=== PATIENT | male | born 1965 | race Caucasian/White ===

== ENCOUNTER 2020-03-30 13:56 | Emergency (ER) | payer MEDICAID ==
[~2020-03-30] VITALS: Ht 185.4 cm; Wt 99.8 kg
[2020-03-30 14:01] VITALS: BP_SYST 152
[2020-03-30] MEDS ORDERED: PIPERACILLIN/TAZO 3.375 GM in NS 50 ML IV ONE (14:15)
[2020-03-30] MEDS ORDERED: VANCOMYCIN HCL 1,000 MG in NS 250 ML IV ONE (14:15)
[2020-03-30 14:40] LABS: BASOPHILS % (AUTO) 0.3 % (0.0-2.0); EOSINOPHILS # (AUTO) 0.2 K/uL (0.0-0.4); EOSINOPHILS % (AUTO) 1.8 % (0.0-4.0); HEMATOCRIT 38.4 % (36-54); HEMOGLOBIN 13.1 g/dL (14.0-18.0); LYMPHOCYTES # (AUTO) 1.2 K/uL (1.0-5.5); LYMPHOCYTES % (AUTO) 12.5 % (20.5-51.5); MEAN CORPUSCULAR HEMOGLOBIN 30 pg (27-31); MEAN CORPUSCULAR HGB CONC 34 % (32-36); MEAN CORPUSCULAR VOLUME 88 fL (79.0-98.0); MONOCYTES # (AUTO) 0.7 K/uL (0.0-1.0); MONOCYTES % (AUTO) 7.4 % (1.7-9.3); NEUTROPHILS # (AUTO) 7.5 K/uL (1.8-7.7); PLATELET COUNT (AUTO) 208 K/uL (130-430); RED BLOOD CELL COUNT(AUTO) 4.36 MIL/uL (4.2-6.2); RED CELL DISTRIBUTION WIDTH 13.8 % (9.0-15.0); WHITE BLOOD COUNT (AUTO) 9.6 K/uL (4.8-10.8)
[2020-03-30 14:46] LABS: CALCIUM 8.8 mg/dL (8.4-11.0); CREATININE 1.2 mg/dL (0.55-1.30); POTASSIUM 4.7 mmol/L (3.5-5.1)
[2020-03-30] MEDS ORDERED: VANCOMYCIN HCL 1000 MG/VIAL IV ONE (14:50)
[2020-03-30 14:51] LABS: ALBUMIN 3.5 g/dL (3.4-4.8); TOTAL BILIRUBIN 0.7 mg/dL (0.0-1.0)
[2020-03-30] MEDS ORDERED: INSULIN REGULAR, HUMAN 10 UNITS/0.1 ML INJ IVP ONE (15:00)
[2020-03-30] MEDS ORDERED: PIPERACILLIN/TAZOBACTAM 3.375 GM/VIAL (ZOSYN) IV ONE (15:09)
[2020-03-30 17:03] VITALS: BP_SYST 147
== END 2020-03-30 17:00 | disposition home or self-care (01) ==
LOC: SED 13:56
DX: S91.332A Puncture wound without foreign body, left foot, initial encounter (principal); I10 Essential (primary) hypertension; E11.9 Type 2 diabetes mellitus without complications; X58.XXXA Exposure to other specified factors, initial encounter; Y93.89 Activity, other specified; Y92.89 Other specified places as the place of occurrence of the external cause; Y99.8 Other external cause status
CPT/HCPCS: 36415; 80053; 85025; 87040; 96365; 96367; 96375; 99284; J1815; J2543; J3370

== ENCOUNTER 2020-04-03 12:42 | Emergency (ER) | payer MEDICAID ==
[~2020-04-03] VITALS: Ht 185.4 cm; Wt 99.8 kg
[2020-04-03 13:20] VITALS: BP_SYST 105
[2020-04-03] MEDS ORDERED: NS 500 ML IV ONE (14:00)
[2020-04-03] MEDS ORDERED: ONDANSETRON HCL 4 MG/2 ML VIAL IVP ONE (14:00)
[2020-04-03] MEDS ORDERED: MORPHINE 2 MG/ML INJ. SYRINGE IVP ONE ×2 (14:00→18:15)
[2020-04-03] MEDS ORDERED: VANCOMYCIN HCL 1,000 MG in NS 250 ML IV ONE (14:00)
[2020-04-03] MEDS ORDERED: DIPH-TET-PERTUS Vaccine 0.5 ML VIAL (ADACEL) I.M. ONE (14:15)
[2020-04-03 14:42] LABS: BASOPHILS # (AUTO) 0.1 K/uL (0.0-0.2); BASOPHILS % (AUTO) 1.6 % (0.0-2.0); EOSINOPHILS # (AUTO) 0.2 K/uL (0.0-0.4); EOSINOPHILS % (AUTO) 3.1 % (0.0-4.0); HEMATOCRIT 38.2 % (36-54); HEMOGLOBIN 13.1 g/dL (14.0-18.0); LYMPHOCYTES # (AUTO) 0.5 K/uL (1.0-5.5); LYMPHOCYTES % (AUTO) 7.2 % (20.5-51.5); MEAN CORPUSCULAR HEMOGLOBIN 30 pg (27-31); MEAN CORPUSCULAR HGB CONC 34 % (32-36); MEAN CORPUSCULAR VOLUME 86 fL (79.0-98.0); MONOCYTES # (AUTO) 0.4 K/uL (0.0-1.0); MONOCYTES % (AUTO) 6.2 % (1.7-9.3); NEUTROPHILS # (AUTO) 5.2 K/uL (1.8-7.7); NEUTROPHILS % (AUTO) 81.9 % (40.0-70.0); PLATELET COUNT (AUTO) 248 K/uL (130-430); RED BLOOD CELL COUNT(AUTO) 4.44 MIL/uL (4.2-6.2); RED CELL DISTRIBUTION WIDTH 13.6 % (9.0-15.0); WHITE BLOOD COUNT (AUTO) 6.3 K/uL (4.8-10.8)
[2020-04-03] MEDS ORDERED: VANCOMYCIN HCL 1000 MG/VIAL IV ONE (14:52)
[2020-04-03 14:54] LABS: CALCIUM 8.7 mg/dL (8.4-11.0); CREATININE 1.47 mg/dL (0.55-1.30); POTASSIUM 4.9 mmol/L (3.5-5.1)
[2020-04-03 15:00] LABS: TOTAL BILIRUBIN 0.7 mg/dL (0.0-1.0)
[2020-04-03] MEDS ORDERED: INSULIN REGULAR, HUMAN 10 UNITS/0.1 ML INJ IVP ONE (15:00)
[2020-04-03 15:01] LABS: INR 0.9 (0.80-1.20); PROTHROMBIN TIME 9.4 SECS (9.5-12.5)
[2020-04-03 18:38] VITALS: BP_SYST 117
== END 2020-04-03 18:38 | disposition short-term general hospital (02) ==
LOC: SED 12:42
DX: L03.116 Cellulitis of left lower limb (principal); I10 Essential (primary) hypertension; E11.9 Type 2 diabetes mellitus without complications
CPT/HCPCS: 36415; 71045; 73630; 80053; 82962; 83605; 84484; 85025; 85610; 85730; 87040; 90471; 90715; 93005; 96365; 96366; 96375; 96376; 99285; J1815; J2270; J2405; J3370; J7040

== ENCOUNTER 2020-04-24 05:17 | Emergency (ER) | payer MEDICAID ==
[~2020-04-24] VITALS: Ht 185.4 cm; Wt 108.9 kg
[2020-04-24 05:17] VITALS: BP_SYST 12; BP_SYST 121
[2020-04-24] MEDS ORDERED: INSULIN REGULAR, HUMAN 10 UNITS/0.1 ML INJ IVP ONE (05:30)
[2020-04-24] MEDS ORDERED: NACL 0.9% 1,000 ML IV ONE (05:30)
[2020-04-24] MEDS ORDERED: MORPHINE 2 MG/ML INJ. SYRINGE IVP ONE (05:30)
[2020-04-24] MEDS ORDERED: VANCOMYCIN HCL 1,000 MG in NS 250 ML IV ONE (05:30)
[2020-04-24] MEDS ORDERED: GLIP2.5T3 PO (05:31)
[2020-04-24] MEDS ORDERED: INSU100V46 SQ (05:33)
[2020-04-24 05:51] LABS: BASOPHILS % (AUTO) 0.8 % (0.0-2.0); EOSINOPHILS # (AUTO) 0.2 K/uL (0.0-0.4); EOSINOPHILS % (AUTO) 4.3 % (0.0-4.0); HEMATOCRIT 41.3 % (36-54); HEMOGLOBIN 14.2 g/dL (14.0-18.0); LYMPHOCYTES # (AUTO) 1.4 K/uL (1.0-5.5); LYMPHOCYTES % (AUTO) 25.7 % (20.5-51.5); MEAN CORPUSCULAR HEMOGLOBIN 30 pg (27-31); MEAN CORPUSCULAR HGB CONC 34 % (32-36); MEAN CORPUSCULAR VOLUME 86 fL (79.0-98.0); MONOCYTES # (AUTO) 0.6 K/uL (0.0-1.0); MONOCYTES % (AUTO) 10.2 % (1.7-9.3); NEUTROPHILS # (AUTO) 3.3 K/uL (1.8-7.7); PLATELET COUNT (AUTO) 208 K/uL (130-430); RED BLOOD CELL COUNT(AUTO) 4.79 MIL/uL (4.2-6.2); RED CELL DISTRIBUTION WIDTH 14.5 % (9.0-15.0); WHITE BLOOD COUNT (AUTO) 5.6 K/uL (4.8-10.8)
[2020-04-24] MEDS ORDERED: VANCOMYCIN HCL 1000 MG/VIAL IV ONE (06:01)
[2020-04-24 06:07] LABS: CREATININE 1.09 mg/dL (0.55-1.30); POTASSIUM 4.4 mmol/L (3.5-5.1)
[2020-04-24 06:12] LABS: ALBUMIN 3.5 g/dL (3.4-4.8); TOTAL BILIRUBIN 0.9 mg/dL (0.0-1.0)
[2020-04-24 06:40] VITALS: BP_SYST 128
[2020-04-24] MEDS ORDERED: SULFAMETHOXAZOLE/TRIMETHOPR DS 1 TABLET PO ONE (06:45)
== END 2020-04-24 06:40 ==
LOC: SED 05:17
DX: S91.312D Laceration without foreign body, left foot, subsequent encounter (principal); L03.116 Cellulitis of left lower limb; I10 Essential (primary) hypertension; E11.9 Type 2 diabetes mellitus without complications; E78.5 Hyperlipidemia, unspecified; Z79.899 Other long term (current) drug therapy; Z79.4 Long term (current) use of insulin; W21.31XD Struck by shoe cleats, subsequent encounter
CPT/HCPCS: 36415; 82962; 80053; 85025; 96365; 96375; 99284; J1815; J2270; J3370; J7030

== ENCOUNTER 2020-06-01 10:51 | Emergency (ER) | payer MEDICAID ==
[~2020-06-01] VITALS: Ht 185.4 cm; Wt 97.5 kg
[~2020-06-01 10:51] MED LIST: GLIP2.5T3 PO; INSU100V46 SQ
[2020-06-01 11:06] VITALS: BP_SYST 163
--- NOTE | 2020-06-01 11:17 | NUR ---
Patient to ER bed 02 to gown for evaluation. Side rails up.
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
--- NOTE | 2020-06-01 11:25 | NUR ---
ER DR. CARLOS AT THE BEDSIDE EVALUATING PT
--- NOTE | 2020-06-01 11:56 | NUR ---
Patient given written and verbal discharge instructions and verbalizes understanding. ER MD discussed with patient the results and treatment provided. Patient in stable condition. ID arm band removed. Patient educated on pain management and to follow up with PMD. Pain Scale 0/10. Opportunity for questions provided and answered. Medication side effect fact sheet provided.
[2020-06-01 12:13] VITALS: BP_SYST 163
== END 2020-06-01 11:56 | disposition home or self-care (01) ==
LOC: SED 10:51
DX: L03.116 Cellulitis of left lower limb (principal); I10 Essential (primary) hypertension; E11.9 Type 2 diabetes mellitus without complications
CPT/HCPCS: 99281

== ENCOUNTER 2023-02-17 18:05 | Emergency (ER) | payer MEDICAID ==
[~2023-02-17] VITALS: Ht 185.4 cm; Wt 104.3 kg
[2023-02-17 18:09] VITALS: BP_SYST 125; PULSE 80; RESP 19; TEMP 98; O2SAT 97
[2023-02-17 20:08] LABS: BASOPHILS % (AUTO) 0.4 % (0.0-2.0); EOSINOPHILS # (AUTO) 0.2 K/uL (0.0-0.4); EOSINOPHILS % (AUTO) 2.3 % (0.0-4.0); HEMATOCRIT 41.6 % (36-54); HEMOGLOBIN 13.6 g/dL (14.0-18.0); LYMPHOCYTES % (AUTO) 21.5 % (20.5-51.5); MEAN CORPUSCULAR HEMOGLOBIN 28 pg (27-31); MEAN CORPUSCULAR HGB CONC 33 % (32-36); MEAN CORPUSCULAR VOLUME 87 fL (79.0-98.0); MONOCYTES # (AUTO) 0.7 K/uL (0.0-1.0); MONOCYTES % (AUTO) 7.2 % (1.7-9.3); NEUTROPHILS # (AUTO) 6.3 K/uL (1.8-7.7); NEUTROPHILS % (AUTO) 68.6 % (40.0-70.0); PLATELET COUNT (AUTO) 196 K/uL (130-430); RED BLOOD CELL COUNT(AUTO) 4.78 MIL/uL (4.2-6.2); RED CELL DISTRIBUTION WIDTH 15.1 % (9.0-15.0); WHITE BLOOD COUNT (AUTO) 9.1 K/uL (4.8-10.8)
[2023-02-17 20:37] LABS: ANION GAP 8 (5-15); CALCIUM 8.7 mg/dL (8.4-11.0); CARBON DIOXIDE 30 mmol/L (23-29); CHLORIDE 104 mmol/L (98-107); CREATININE 1.15 mg/dL (0.55-1.30); GFR AFRICAN AMERICAN 83 mL/min (>90); GLUCOSE 171 mg/dL (74-106); POTASSIUM 4.2 mmol/L (3.5-5.1); SODIUM SERUM 142 mmol/L (136-145); UREA NITROGEN, BLOOD 26 mg/dL (8-21)
[2023-02-17 20:46] LABS: ALANINE AMINOTRANSFERASE 32 U/L (12-78); ALBUMIN 3.6 g/dL (3.4-4.8); ASPARTATE AMINOTRANSFERASE 25 U/L (10-37); GFR NON AFRICAN-AMERICAN 69 mL/min (>90); TOTAL BILIRUBIN 0.9 mg/dL (0.0-1.0); TOTAL PROTEIN, SERUM 6.7 g/dL (6.4-8.3)
[2023-02-18 01:58] VITALS: BP_SYST 145; PULSE 78; RESP 20; TEMP 97.7; O2SAT 95
== END 2023-02-18 01:58 ==
LOC: SED 18:05
DX: I49.3 Ventricular premature depolarization (principal); E11.9 Type 2 diabetes mellitus without complications; I10 Essential (primary) hypertension; Z79.899 Other long term (current) drug therapy
CPT/HCPCS: 36415; 71045; 80053; 84484; 85025; 93005; 99285